=== PATIENT | female | born 1955 | race Caucasian/White ===

== ENCOUNTER 2022-12-30 07:30 | Inpatient (IN) ==
--- NOTE | 2022-12-23 12:44 | EKG ---
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
[2022-12-23 12:55] LABS: Basophils # (Auto) 0.03 K/mcL (0.00-0.30); Basophils % (Auto) 0.5 % (0.0-2.0); Eosinophils # (Auto) 0.05 K/mcL (0.00-0.70); Eosinophils % (Auto) 0.8 % (0.0-7.0); Hematocrit 38.5 % (34.1-44.9); Hemoglobin 12.8 g/dL (11.2-15.7); Lymphocytes # (Auto) 1.23 K/mcL (1.50-4.80); Lymphocytes % (Auto) 19.9 % (15.5-49.0); Mean Cell Volume 87.7 fL (80.0-100.0); Mean Corpuscular HGB Conc 33.2 g/dL (31.0-36.0); Mean Platelet Volume 9.7 fL (8.8-12.5); Monocytes # (Auto) 0.52 K/mcL (0.10-0.90); Monocytes % (Auto) 8.4 % (1.0-12.0); Neutrophils % (Auto) 70.1 % (38.0-78.0); Platelet Count 273 K/mcL (140-440); RBC 4.39 M/mcL (3.59-5.38); WBC 6.2 K/mcL (4.5-11.0)
[2022-12-23 13:13] LABS: INR 0.9 (0.9-1.1); Prothrombin Time 12.7 sec (11.9-14.5)
[2022-12-23 13:36] LABS: Appearance,Urine CLEAR (Clear); Bilirubin,Urine Negative (Negative); Color,Urine STRAW; Culture Indicated,Urine No; Glucose,Urine (UA) Negative (Negative); Ketones,Urine Negative (Negative); Leukocyte Esterase,Urine Negative /uL (Negative); Nitrate,Urine Negative (Negative); Protein,Urine Negative (Negative); Specific Gravity,Urine 1.008 (1.000-1.035); Urine Blood Negative (Negative); Urobilinogen,Urine Negative
[2022-12-23 13:38] LABS: Estimated Average Glucose(eAG) 117 mg/dL; Hemoglobin A1C 5.7 % Hgb (4.0-6.0)
[2022-12-23 13:46] LABS: Blood Urea Nitrogen 10 mg/dL (8-23); Calcium 9.3 mg/dL (8.6-10.4); Carbon Dioxide 24 mmol/L (22-30); Chloride 101 mmol/L (96-108); Glomerular Filtration Rate 89; Glucose 96 mg/dL (70-105)
[~2022-12-30 07:30] MED LIST: 0.9 % SODIUM CHLORIDE 9 ML, KETOROLAC 30 MG, ROPIVACAINE HCL/PF 49.5 ML, EPINEPHrine 0.... IJ SCH; CELECOXIB 200 MG CAPSULE PO SCH; PREGABALIN 75 MG CAPSULE PO SCH; ceFAZolin 2 GM in DEXTROSE 5% IN WATER 50 ML IV SCH; oxyCODONE 10 MG TAB.ER.12H PO SCH
[2022-12-30] MEDS ORDERED: SCOPOLAMINE 1 PATCH PATCH TOPICAL PRN (12:00)
[2022-12-30] MEDS ORDERED: IPRATROPIUM/ALBUTEROL 3 ML AMPUL.NEB NEB PRN ×2 (12:00→17:51)
[2022-12-30] MEDS ORDERED: LIDOCAINE HCL/PF 100 MG/5 ML SYRINGE IV ONE (15:45)
[2022-12-30] MEDS ORDERED: MAGNESIUM SULFATE 2 GM/50 ML BAG IV ONE (15:45)
[2022-12-30] MEDS ORDERED: PROPOFOL 200 MG/20 ML VIAL IV ONE (15:45)
[2022-12-30] MEDS ORDERED: ePHEDrine 50 MG/5 ML SYRINGE (ANEST) IV ONE (15:45)
[2022-12-30] MEDS ORDERED: ROPIVACAINE HCL/PF 30 ML VIAL IJ ONE (15:45)
[2022-12-30] MEDS ORDERED: GLYCOPYRROLATE 0.2 MG/ML VIAL IV ONE (15:45)
[2022-12-30] MEDS ORDERED: PHENYLephrine 1 MG/10 ML SYRINGE (ANEST) ONE (15:45)
[2022-12-30] MEDS ORDERED: ONDANSETRON 4 MG/2 ML VIAL ONE (15:45)
[2022-12-30] MEDS ORDERED: KETAMINE 50 MG/ML Syringe (ANEST) IV ONE (15:45)
[2022-12-30] MEDS ORDERED: DEXAMETHASONE 10 MG/ML VIAL ONE (15:45)
[2022-12-30] MEDS ORDERED: TRANEXAMIC ACID 1,000 MG/10 ML VIAL ONE ×2 (15:45→18:58)
[2022-12-30] MEDS ORDERED: NALOXONE HCL 0.4 MG/ML VIAL IV PRN (17:51)
[2022-12-30] MEDS ORDERED: METHOCARBAMOL 1,000 MG/10 ML VIAL IV PRN (17:51)
[2022-12-30] MEDS ORDERED: LACTATED RINGERS 250 ML IV PRN (17:51)
[2022-12-30] MEDS ORDERED: PROMETHAZINE 25 MG/ML VIAL IV PRN (17:51)
[2022-12-30] MEDS ORDERED: ONDANSETRON 4 MG/2 ML VIAL IV PRN ×2 (17:51→17:59)
[2022-12-30] MEDS ORDERED: fentaNYL 100 MCG/2 ML VIAL IV PRN (17:51)
[2022-12-30] MEDS ORDERED: ACETAMINOPHEN 1,000 MG/100 ML BAG IV ONE (17:51)
[2022-12-30] MEDS ORDERED: diphenhydrAMINE 50 MG/ML VIAL IV PRN (17:51)
--- NOTE | 2022-12-30 17:56 | General Surgery Procedure Note ---
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 lucency under tibia, patella worn down Anesthesia: spinal Surgeon: Laron Shankar Software Engineer Kernel: Alvarez Dillon Estimated blood loss: 250 Pathology: other (frozen x 2, culture x 1) Description of procedure: revision tka Condition: stable Disposition: PACU
--- NOTE | 2022-12-30 17:57 | Discharge Plan ---
Discharge Instructions - TKA Patient Instructions Total Knee Protocol: For Total Knee: Start ROM BROOKE with stationary bike or rocking chair. Work on gaining full extension of knee. Posterior dislocation precautions provided. Hip abductor strengthening and gait training instructions provided. Apply Cryocuff as instructed. Dressing Care: May shower in 2 days Discharge Plan Patient/Caregiver Discharge Instructions Activity: ambulate only with your walker and as per physical therapy Diet: Regular Diet Prescriptions: No Action calcium 600 mg Capsule 1,200 mg PO DAILY acetaminophen [Tylenol] 325 mg Tablet 650 mg PO Q6H PRN (Reason: Pain) melatonin 10 mg Tablet 10 mg PO HS PRN (Reason: Sleep) Senna Laxative-Stool Softener 2 cap PO DAILY trazodone 100 mg tablet 200 mg PO HS lorazepam 1 mg tablet 1 - 2 mg PO HS Rx Instructions: 1 mg orally 1-2 tablets daily Follow Up Plan Follow up with: Laron Shankar MD [Physician] - Patient Disposition: Home, Self-Care Rehab Potential: Good I certify that the patient requires SNF services: No Overall status at discharge: patient is progressing back to baseline Discharge Orders: Discharge Order (Routine); Ordered 12/30/22 Ordered By: Laron Shankar Discharge Comment: cc: s/p revision tka
[2022-12-30] MEDS ORDERED: ONDANSETRON 4 MG ODT TABLET SL PRN (17:59)
[2022-12-30] MEDS ORDERED: BISACODYL 10 MG SUPP.RECT PR PRN (17:59)
[2022-12-30] MEDS ORDERED: morphine 4 MG/ML VIAL IV PRN (17:59)
[2022-12-30] MEDS ORDERED: FLEETS ADULT ENEMA PR PRN (17:59)
[2022-12-30] MEDS ORDERED: TRANEXAMIC ACID 1,000 MG/10 ML VIAL IV ONE (17:59)
[2022-12-30] MEDS ORDERED: POLYETHYLENE GLYCOL 3350 17 GM PACKET PO PRN (17:59)
[2022-12-30] MEDS ORDERED: BENZOCAINE/MENTHOL 1 LOZENGE PO PRN (17:59)
[2022-12-30] MEDS ORDERED: MAGNESIUM HYDROXIDE 30 ML ORAL.SUSP PO PRN (17:59)
[2022-12-30] MEDS ORDERED: LACTATED RINGERS 1,000 ML IV SCH (18:00)
[2022-12-30] MEDS ORDERED: MELATONIN 3 MG TABLET PO PRN (18:02)
[2022-12-30] MEDS: MEPERIDINE 25 MG/ML VIAL IV PRN ×2 (18:46→18:53)
--- NOTE | 2022-12-30 18:56 | XRay Report ---
INDICATION: Post-Op Total Knee TECHNIQUE: AP and crosstable lateral COMPARISON: Previous examination dated 08/25/2022 FINDINGS:Status post revision of left total knee arthroplasty. There are long stem femoral and tibial prostheses. Alignment is anatomic. There is postsurgical soft tissue and intra-articular gas. IMPRESSION: Revision of left knee arthroplasty Interpreted and Authenticated by: Laron Funk 12/30/22
[2022-12-30] MEDS: LACTATED RINGERS 1,000 ML IV SCH (19:55)
[2022-12-30] MEDS ORDERED: SENNOSIDES 1 TABLET PO SCH (21:00)
[2022-12-30] MEDS ORDERED: traZODone HCL 100 MG TABLET PO SCH (21:00)
[2022-12-30] MEDS ORDERED: LORazepam 1 MG TABLET PO SCH (21:00)
[2022-12-30] MEDS: DOCUSATE SODIUM 100 MG CAPSULE PO SCH (21:51)
[2022-12-30] MEDS: METHOCARBAMOL 750 MG TABLET PO PRN (21:51)
[2022-12-30] MEDS: ASPIRIN 81 MG TAB.CHEW PO SCH (21:51)
[2022-12-30] MEDS: oxyCODONE IR 5 MG TABLET PO PRN (21:53)
[2022-12-30] MEDS: 0.9 % SODIUM CHLORIDE 10 ML SYRINGE IV SCH (21:54)
[2022-12-31] MEDS: ceFAZolin 1 GM VIAL IV SCH ×2 (00:45→07:32)
[2022-12-31] MEDS: LACTATED RINGERS 1,000 ML IV SCH ×2 (02:00→03:40)
[2022-12-31] MEDS: oxyCODONE IR 5 MG TABLET PO PRN ×2 (03:12→07:32)
[2022-12-31] MEDS: 0.9 % SODIUM CHLORIDE 10 ML SYRINGE IV SCH (05:04)
[2022-12-31 06:56] LABS: Hematocrit 31.7 % (34.1-44.9); Hemoglobin 10.5 g/dL (11.2-15.7)
--- NOTE | 2022-12-31 06:59 | Orthopedic Progress Note ---
SUBJECTIVE Subjective Patient information: Note initiated : 12/31/22 at 6:57 am Service Date, if different from initiated Date: [] Patient: Rachel Perea 67 y/o F admitted on 12/30/22 for Left Total Knee Arthroplasty Revision. Chief Complaint: [s/p left TKA revision ] Pertinent ROS: 10 points reviewed and are negative except where mentioned Constitutional Vitals: Vital Signs Temp Pulse Resp BP Pulse Ox O2 Del Method O2 Flow Rate 96.9 F L 85 14 107/61 96 Nasal Cannula 1 12/31/22 03:05 12/31/22 04:00 12/31/22 04:00 12/31/22 03:05 12/31/22 04:00 12/31/22 04:00 12/31/22 04:00 Period Temp Pulse Resp BP Sys/Antoine Pulse Ox O2 Del Method O2 Flow Rate Last 24 Hr 96.2 F-98.4 F 80-94 11-27 101-154/53-92 92-100 Nasal Cannula- Room Air 1-5 Intake and Output 12/30/22 12/31/22 12/31/22 19:59 03:59 11:59 Intake Total 2570 1460 Output Total 800 550 400 Balance 1770 910 -400 Weight 248 lb 9 oz 266 lb 1.6 oz Intake & Output: Intake & Output 12/30/22 12/31/22 12/31/22 19:59 03:59 11:59 Intake Total 2570 1460 Output Total 800 550 400 Balance 1770 910 -400 Weight 248 lb 9 oz 266 lb 1.6 oz Intake: IV 150 1000 Lactated Ringers 1,000 ml @ 125 1000 mls/hr IV .Q8H CYDNEY Rx#: [id number] Ancef 2 gm In Dextrose 5% in 50 Water 50 ml @ 100 mls/hr IV PREOP CYDNEY Rx#:[id number] Oral 460 Clear Carbohydrate Drink 120 IV - Manual Only 2300 Output: Urine Catheter Amount 800 Void Amount 550 400 Other: Meal Jello, marley crackers Percent of Meal Consumed 100% Feeding Ability Independent Urine Appearance Clear Clear Clear Urine Color Yellow Yellow Yellow Urine Odor Normal OBJ DATA Labs 12/31/22 05:35 12/23/22 10:29 Labs: Abnormal Lab Results 12/31/22 05:35 Hgb 10.5 L Hct 31.7 L Meds: Medications Aspirin (Aspirin 81 Mg Tab.Chew) 81 mg PO BID [facility] Last Admin: 12/30/22 21:51 Dose: 81 mg Bisacodyl (Bisacodyl 10 Mg Supp.Rect) 10 mg NV Q2-3DAYS PRN PRN Reason: Constipation Cefazolin Sodium (Cefazolin 1 Gm Vial) 2 gm IV Q8H [facility]; Protocol Stop: 12/31/22 08:01 Last Admin: 12/31/22 00:45 Dose: 2 gm Docusate Sodium (Docusate Sodium 100 Mg Capsule) 100 mg PO BID [facility] Last Admin: 12/30/22 21:51 Dose: 100 mg Lorazepam (Lorazepam 1 Mg Tablet) 1 - 2 mg PO HS [facility] Last Admin: 12/30/22 21:51 Dose: 1 mg Magnesium Hydroxide (Magnesium Hydroxide 30 Ml Oral.Susp) 30 ml PO BIDP PRN PRN Reason: Constipation Melatonin (Melatonin 3 Mg Tablet) 9 mg PO HSP PRN PRN Reason: Sleep Methocarbamol (Methocarbamol 750 Mg Tablet) 750 mg PO Q6HP PRN PRN Reason: Muscle Spasm Last Admin: 12/30/22 21:51 Dose: 750 mg Morphine Sulfate (Morphine 4 Mg/Ml Vial) 2 - 6 mg IV Q1HP PRN; Protocol PRN Reason: Per Pain Protocol Ondansetron HCl (Ondansetron 4 Mg/2 Ml Vial) 4 mg IV Q4HP PRN; Protocol PRN Reason: Nausea And Vomiting Ondansetron HCl (Ondansetron 4 Mg Odt Tablet) 4 mg SL Q4HP PRN; Protocol PRN Reason: Nausea And Vomiting Oxycodone HCl (Oxycodone Ir 5 Mg Tablet) 5 - 10 mg PO Q4HP PRN; Protocol PRN Reason: Per Pain Protocol Last Admin: 12/31/22 03:12 Dose: 5 mg Polyethylene Glycol (Polyethylene Glycol 3350 17 Gm Packet) 17 gm PO DAILYP PRN PRN Reason: Constipation Senna (Sennosides 1 Tablet) 2 tab PO DAILY [facility]NEY Senna (Sennosides 1 Tablet) 2 tab PO HS [facility] Last Admin: 12/30/22 21:52 Dose: 2 tab Sodium Biphosphate/Sodium Phosphate (Fleets Adult Enema) 1 dose NV Q3-4DAYS PRN PRN Reason: Constipation Sodium Chloride (0.9 % Sodium Chloride 10 Ml Syringe) 10 ml IV Q8 [facility] Last Admin: 12/31/22 05:04 Dose: 10 ml Throat Lozenges (Benzocaine/Menthol 1 Lozenge) 1 lozenge PO PRN PRN PRN Reason: Sore Throat Trazodone HCl (Trazodone Hcl 100 Mg Tablet) 200 mg PO HS [facility] Last Admin: 12/30/22 21:51 Dose: 200 mg A/P Narrative A/P Narrative: Patient seen and examined this am. Awake alert and eager for discharge. Has some expected post op discomfort but feels it is well managed on current regimen. Dressing at [facility] will change to silver dressing prior to discharge. Both LE are warm well perfused neuro intact with intact ankle motion to resistance testing. She does endorse occasional WB and ambulation in the room. Plan is for expected dispo to home today w/ F/u at [facility] in 10-14 days. WBAT with walker for assistance pain control PT/OT DVt proph Time Spent With Patient Time: Total time spent is greater than 50% in coordination of care (as documented) at patient's floor/unit and/or counseling patient:
[2022-12-31] MEDS: METHOCARBAMOL 750 MG TABLET PO PRN (07:31)
[2022-12-31] MEDS: DOCUSATE SODIUM 100 MG CAPSULE PO SCH (08:43)
[2022-12-31] MEDS: ASPIRIN 81 MG TAB.CHEW PO SCH (08:44)
[2022-12-31] MEDS ORDERED: SENNOSIDES 1 TABLET PO SCH (09:00)
--- NOTE | 2023-01-01 09:35 | Operative Note ---
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 PROCEDURE: Left revision total knee arthroplasty of femur, tibia and patella, with debridement of metalosis. SURGEON: Manuel Shankar M.D. NUISANCE WILDLIFE CONTROL OPERATOR SURGEON: Doug Dillon PA-C. The assistance of the PA was required for the safe and efficient completion of the entire case. The expertise and technical skill of this provider was required throughout the case. The PA assisted with preoperative coordination, intraoperative retraction, wound closure, dressing and splint application, as well as postoperative documentation and care coordination. ANESTHESIA: Spinal with LMA assist. ESTIMATED BLOOD LOSS: 300 mL. COMPLICATIONS: None noted. SPECIMENS REMOVED: Frozen specimen x2, culture x1. No neutrophils/HPF. DRAINS: None. TOURNIQUET TIME: 80 min at 250 mmHg. IMPLANTS: DePuy gentamicin bone cement CMW2 20 g x 4. DePuy Attune femoral revision tibial base rotating platform size 5 cemented. DePuy Attune revision tibial sleeve Porocoat fully coated 45 mm. DePuy Attune revision PressFit stem 16 x 60. DePuy Attune patella medialized dome 38 mm cemented AOX. DePuy Attune revision CRS rotating platform insert size 6, 12 mm AOX. DePuy Attune revision CRS femoral size 6 left cemented. DePuy Attune revision femoral sleeve Porocoat fully coated 40 mm. DePuy Attune revision posterior femoral augment size 6, 8 mm cemented x2. DePuy Attune revision distal femoral augment size 6, 8 mm cemented x2. DePuy Attune revision PressFit stem 16 x 60. INDICATIONS: The patient had a previous total knee arthroplasty done years ago. She had increasing pain recently and we aspirated the knee. There was no evidence of infection. There appeared to be osteolysis of the tibia. We talked about different options and elected to proceed with the above surgical intervention. The risks and benefits were discussed with the patient in detail including, but not limited to, the risks of anesthesia, problems with the heart or lungs related to anesthesia, infection, compromise or injury to the nerves and blood vessels, deep venous thrombosis, pulmonary embolism, pneumonia, continued pain after surgery, worsening pain or symptoms after surgery, swelling, loss of motion, instability, leg length discrepancy, and need for repeat surgery. DESCRIPTION OF PROCEDURE: The patient was seen in the preanesthesia waiting room where all questions were answered and the correct side and site were identified and marked. The patient was transferred to the operating room and administered the anesthetic and given preoperative antibiotics. A timeout was then called. The extremity was prepped and draped, exsanguinated, and the tourniquet was inflated to 250 mmHg. A midline skin incision was made and a standard medial parapatellar arthrotomy was performed through the old arthrotomy. We debrided out all of the suture. There was a large amount of metalosis noted throughout the synovium and I completely excised all of this area. The patella demonstrated some lucency and wear, so I cut the patella and with a saw removed all of the cement as well as the plastic component. We debrided this out and there was a large osteophyte off the lateral facet, which was cut as well, resized and drilled at a 38 mm. We removed the tibial polyethylene. I then sequentially removed the femur and the tibia using the flexible osteotomes. The femur was well-fixed. The tibia demonstrated some osteolysis underneath. We removed all of the bony debris underneath both components. I did take fresh specimens x2 and sent to the pathologist; no WBC/HPF. We thoroughly irrigated both sites. We then turned our attention to the tibia and the femur. We reamed the intramedullary up to a 16 mm. We then approached the femur first. We cut our distal anterior posterior chamfer and used 8 mm augment, both distally and posteriorly. Our attention was turned toward the tibia. We broached up to a stable broach. We cut off the top of the broach and sized this to a size 5 tibia. It was rotationally placed and once we got this intact, after broaching the sleeve, we then placed a 12 mm polyethylene block and took the knee through range of motion. There was full flexion and extension, stable in all planes as well as anterior and posterior drawer. We thoroughly irrigated. We removed all trials, irrigated and dried all cut surfaces. We cemented the components into place including tibia, femur and patella. We placed a trial liner and held the knee in full extension with the patella compressed while the cement cured. We then removed all excess cement and placed the final polyethylene tibiofemoral component. Irrigation with 3 liters of antibiotic saline was then performed using jet lavage. We let the tourniquet down and coagulated bleeding vessels. 20 milligrams per cubic centimeter of 0.25% Sensorcaine throughout the posterior compartment. We closed the retinaculum with #1 Stratafix and #0 Vicryl and closed the subcutaneous tissue and skin in layers out to Dermabond in the skin. A sterile pressure dressing was applied. All needle and sponge counts were correct. The patient was transferred to the recovery room in stable condition. DARRELL:[email or web address] Job ID: [id number] Doc ID: [id number] Manuel Shankar MD
== END 2022-12-31 10:49 | disposition home or self-care (01) | DRG 468 ==
LOC: EDSTATUS 07:30 → MEDSUR 12:08
PROVIDERS: ADMIT Orthopaedic Surgery Sports Medicine; ATTEND Orthopaedic Surgery Sports Medicine